=== PATIENT | female | born 1985 | race Caucasian/White ===

== ENCOUNTER 2017-03-24 16:27 | Emergency (ER) | payer OTHER ==
--- NOTE | 2017-03-24 17:16 | DIAGNOSTIC IMAGING REPORT ---
PROCEDURE: XR FINGER - RIGHT INDICATION: TRAUMA/INJURY TECHNIQUE: Three views of the right second digit COMPARISON: None. FINDINGS: There is a fracture of the dorsal aspect of the base of the distal phalanx of the second digit. There is an expansile lesion of the distal phalanx of the second digit which may represent an aneurysmal bone cyst. IMPRESSION: 1. There is a fracture of the dorsal aspect of the base of the distal phalanx of the second digit. 2. 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 Results were called emergency department at 05:15 p.m.
--- NOTE | 2017-03-24 18:06 | ED NURSING NOTES ---
Clinical Report - Nurses [facility] [address] [place] [address] 03/24/2017 16:30 Patient: YEE RODRIGES TRIAGE Triage time 16:36. Acuity: LEVEL 4. Chief Complaint: SKIN LESION and . pt has had a cyst in her 2nd digit of the right hand for 4 years, yesterday, was scrubbing her carseats, and it popped, now is very painful. Alert. --16:42 Stacie Fernandez R.N. 16:36 03/24/17. BP: 118/75. HR: 76. RR: 18. O2 saturation: 99%. Temp: 98.6 F. Pain level now: 08/15. --16:42 Stacie Fernandez R.N. Weight: 68 kg. Height/Length: 68 inches. BMI: 22.8. --16:38 Stacie Fernandez R.N. Medications None. --16:39 Stacie Fernandez R.N. Allergies No Known Drug Allergy. --16:39 Stacie Fernandez R.N. History Arrived by private vehicle. Historian: patient. Primary physician (none). This started yesterday. It is described as painful. SOCIAL HX: Light tobacco smoker (cigarette)- less than 1/2 a pack per day. Alcohol use; consumes beer weekly. History of drug use: marijuana. The patient was not exposed to MRSA. ABUSE ASSESSMENT: Abuse assessment: ('yes") The patient was asked "Do you feel safe in your home?". --16:42 Stacie Fernandez R.N. PROBLEMS: Hypercholesterolemia. --16:41 Stacie Fernandez R.N. ADDITIONAL SURGERIES: Appendectomy. Colon surgery. --16:41 Stacie Fernandez R.N. Interventions ID band on patient. To room. --16:42 Stacie Fernandez R.N. PHYSICAL ASSESSMENT 16:42 03/24/17. GENERAL / NEURO / PSYCH: Alert. Oriented X 4. SKIN: Skin tenderness present. --16:42 Stacie Fernandez R.N. NURSING PROGRESS NOTES 16:42 03/24/17. Patient identifiers checked. Call light placed in reach. Bed placed in lowest position. Patient ready for evaluation- chart flagged. --16:42 Stacie Fernandez R.N. Aluminum-foam finger splint applied to right index finger by tech. Distal pulses intact, sensation intact and motor within normal limits. --18:56 Zita Marr. DISPOSITION / DISCHARGE Departure time: 18:50. Condition at departure: improved. No learning barriers present. Discharge instructions provided and reviewed with the patient. Reviewed splint care instructions (finger in full extension for 4 weeks, reviewed). Reviewed referral to family practice for followup. Verbalized understanding. Written instructions provided. The patient was discharged home and accompanied by daughter. She left the Emergency Department ambulatory and via private vehicle. --18:50 Stacie Fernandez R.N. 18:49 03/24/17. BP: 104/67. HR: 64. RR: 18. O2 saturation: 97%. Temp: 98.1 F. Pain level now: 01/13. --18:50 Stacie Fernandez R.N. Locked/Released at 03/30/2017 10:06 by Rossi Perez R.N.
--- NOTE | 2017-03-24 18:06 | ED NURSING NOTES ---
Clinical Report - Nurses [facility] [address] [place] [address] 03/24/2017 16:30 Patient: YEE RODRIGES TRIAGE Triage time 16:36. Acuity: LEVEL 4. Chief Complaint: SKIN LESION and . pt has had a cyst in her 2nd digit of the right hand for 4 years, yesterday, was scrubbing her carseats, and it popped, now is very painful. Alert. --16:42 Stacie Fernandez R.N. 16:36 03/24/17. BP: 118/75. HR: 76. RR: 18. O2 saturation: 99%. Temp: 98.6 F. Pain level now: 08/15. --16:42 Stacie Fernandez R.N. Weight: 68 kg. Height/Length: 68 inches. BMI: 22.8. --16:38 Stacie Fernandez R.N. Medications None. --16:39 Stacie Fernandez R.N. Allergies No Known Drug Allergy. --16:39 Stacie Fernandez R.N. History Arrived by private vehicle. Historian: patient. Primary physician (none). This started yesterday. It is described as painful. SOCIAL HX: Light tobacco smoker (cigarette)- less than 1/2 a pack per day. Alcohol use; consumes beer weekly. History of drug use: marijuana. The patient was not exposed to MRSA. ABUSE ASSESSMENT: Abuse assessment: ('yes") The patient was asked "Do you feel safe in your home?". --16:42 Stacie Fernandez R.N. PROBLEMS: Hypercholesterolemia. --16:41 Stacie Fernandez R.N. ADDITIONAL SURGERIES: Appendectomy. Colon surgery. --16:41 Stacie Fernandez R.N. Interventions ID band on patient. To room. --16:42 Stacie Fernandez R.N. PHYSICAL ASSESSMENT 16:42 03/24/17. GENERAL / NEURO / PSYCH: Alert. Oriented X 4. SKIN: Skin tenderness present. --16:42 Stacie Fernandez R.N. NURSING PROGRESS NOTES 16:42 03/24/17. Patient identifiers checked. Call light placed in reach. Bed placed in lowest position. Patient ready for evaluation- chart flagged. --16:42 Stacie Fernandez R.N. Aluminum-foam finger splint applied to right index finger by tech. Distal pulses intact, sensation intact and motor within normal limits. --18:56 Zita Marr. DISPOSITION / DISCHARGE Departure time: 18:50. Condition at departure: improved. No learning barriers present. Discharge instructions provided and reviewed with the patient. Reviewed splint care instructions (finger in full extension for 4 weeks, reviewed). Reviewed referral to family practice for followup. Verbalized understanding. Written instructions provided. The patient was discharged home and accompanied by daughter. She left the Emergency Department ambulatory and via private vehicle. --18:50 Stacie Fernandez R.N. 18:49 03/24/17. BP: 104/67. HR: 64. RR: 18. O2 saturation: 97%. Temp: 98.1 F. Pain level now: 01/13. --18:50 Stacie Fernandez R.N. Locked/Released at 03/30/2017 10:06 by Rossi Perez R.N.
--- NOTE | 2017-03-24 18:06 | ED ORDER SUMMARY ---
..... Patient: YEE RODRIGES OrderSheet [facility] VisitID: [id number] [place] [address] 31y, F Registration Date/Time: 03/24/2017 ORDER SHEET Weight: 68.0 kg Allergies: No Known Drug Allergy GENERAL ORDERS: Finger Right (index finger) Urgent (16:51 03/24/2017 Shreya Paulson) (Ack 16:53 Filippo) (18:43 Harvinder R.N.) Splint (Finger) (Right) (Index) (Metal Foam) (jaskaran tape to middle finger. index finger in full extension) (18:05 03/24/2017 Shreya Paulson) (Ack 18:49 Filippo) MEDICATION ORDERS: IV FLUIDS: ORDER SHEET NOTES: [Electronically signed by Rossi Perez R.N. (10:06 03/30/2017)] [Electronically signed by Tim Bains Dr. (22:59 03/31/2017)] [Electronically locked/signed by Rossi Perez R.N. (10:06 03/30/2017)]
--- NOTE | 2017-03-24 18:06 | ED ORDER SUMMARY ---
..... Patient: YEE RODRIGES OrderSheet [facility] VisitID: [id number] [place] [address] 31y, F Registration Date/Time: 03/24/2017 ORDER SHEET Weight: 68.0 kg Allergies: No Known Drug Allergy GENERAL ORDERS: Finger Right (index finger) Urgent (16:51 03/24/2017 Shreya Paulson) (Ack 16:53 Filippo) (18:43 Harvinder R.N.) Splint (Finger) (Right) (Index) (Metal Foam) (jaskaran tape to middle finger. index finger in full extension) (18:05 03/24/2017 Shreya Paulson) (Ack 18:49 Filippo) MEDICATION ORDERS: IV FLUIDS: ORDER SHEET NOTES: [Electronically signed by Rossi Perez R.N. (10:06 03/30/2017)] [Electronically signed by Tim Bains Dr. (22:59 03/31/2017)] [Electronically locked/signed by Rossi Perez R.N. (10:06 03/30/2017)]
--- NOTE | 2017-03-24 18:10 | ED CLINICAL REPORT ---
Clinical Report - Physicians/Mid Levels [facility] [address] [place] [address] 03/24/2017 16:30 Patient: YEE RODRIGES Time Seen: 1642. Arrived- By private vehicle. Historian- patient. HISTORY OF PRESENT ILLNESS Chief Complaint: Injury to the right index finger. The injury happened yesterday. Occurred at home. (jammed finger). Patient is experiencing moderate pain. Patient denies injury to the head or neck. No other injury. REVIEW OF SYSTEMS The patient has had swelling. No tingling, numbness, foreign body or skin laceration. All systems otherwise negative, except as recorded above. PAST HISTORY See nurses notes. " Cyst to the right index finger". Tetanus immunization status is up-to-date. Medications: None. Allergies: No Known Drug Allergy. SOCIAL HISTORY Never smoker. No alcohol use or drug use. Is a local resident. ADDITIONAL NOTES The nursing notes have been reviewed. PHYSICAL EXAM Vital Signs: 03/24/2017 16:36 BP: 118/75. HR: 76. RR: 18. O2 saturation: 99%. Temp: 98.6 F. Pain level now: 10/10. Blood pressure normal. Oxygen saturation normal. Appearance: Alert. Oriented X3. No acute distress. Head: Head atraumatic. Eyes: Pupils equal, round and reactive to light. Eyes normal inspection. CVS: Normal heart rate and rhythm. Heart sounds normal. Pulses normal. Respiratory: No respiratory distress. Breath sounds normal. Chest nontender. Skin: Skin warm and dry. Skin intact. Extremities: (mild amount of ecchymosis and swelling noted to the DIP joint of the right index finger. Neurovascularly intact. Unable to completely extend at the DIP joint. Patient has full flexion. Compartments are soft. Neurovascular intact. no other signs of trauma.). Extremities otherwise negative. Neuro, Vascular and Tendons: Vascular status intact. Sensation intact. Motor intact. Tendon function intact. LABS, X-RAYS, AND EKG Rt UE Digits X-ray: (PROCEDURE: XR FINGER - RIGHT INDICATION: TRAUMA/INJURY TECHNIQUE: Three views of the right second digit COMPARISON: None. FINDINGS: There is a fracture of the dorsal aspect of the base of the distal phalanx of the second digit. There is an expansile lesion of the distal phalanx of the second digit which may represent an aneurysmal bone cyst. IMPRESSION: 1. There is a fracture of the dorsal aspect of the base of the distal phalanx of the second digit. 2. 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 The X-rays were independently viewed by me and interpreted by the radiologist. The X-rays were discussed with the radiologist (recheck today's concerns). PROGRESS AND PROCEDURES Course of Care: the patient is a pleasant 31-year-old female with a past medical history significant for bone cyst presenting for evaluation of pain to the right index finger. Patient with a known deformity to theright finger however with newdiscomfort. Patient will be evaluated for possible fracture. No other signs of trauma noted. no signs of infection. Patient is resting in bed and in no acute distress. Workup shows patient to have a avulsion type fracture noted on the radiographs. Because of the injury, recommended patient be placed in a splint with full extension. Recommended patient also follow-up with her doctor in regards to proper healing of for the wound. discussed with the patient workup here in the emergency Department clinic diagnosis, home care, follow-up, and return precautions. All questions have been answered. The patient expressed understanding of these instructions and was agreeable to them. Disposition: Discharged. Condition: good. CLINICAL IMPRESSION 03/24/2017 16:36 BP: 118/75. HR: 76. RR: 18. O2 saturation: 99%. Temp: 98.6 F. Pain level now: 10/10. Blood pressure normal. Oxygen saturation normal. Distal phalanx fracture of the right index finger (acute). INSTRUCTIONS Warnings: GENERAL WARNINGS: Return or contact your physician immediately if your condition worsens or changes unexpectedly, if not improving as expected, or if other problems arise. Specifically return if pain, vomiting, bleeding, breathing difficulty or fever. Your Current Medications: CONTINUE TAKING THE FOLLOWING MEDICATIONS: None*. Prescription Medications: Goldsmith 5 mg / 325 mg tablets: take 1 orally every 6 hours as needed for pain. Dispense twenty (20). No refill. Substitution is permissible. Follow-up: Return to the emergency department as needed. Follow up with doctor in three weeks. Reason for referral: recheck today's concerns. Summary of care provided to patient via paper. Screening today revealed the patient's blood pressure to be in the normal range. The patient should follow up with a primary care provider for blood pressure management. Understanding of the discharge instructions verbalized by patient. (Electronically signed by Tim Bains Dr. 03/31/2017 22:59)
--- NOTE | 2017-03-31 22:59 | ED MED RECONCILIATION SUMMARY ---
Patient: YEE RODRIGES Medication Reconciliation Report [facility] VisitID: [id number] [address] [place] [address] 31y, F Registration Date/Time: 03/24/2017 Weight: 68.0 kg Height/Length: 68 in. BMI: 22.8 ALLERGIES: No Known Drug Allergy The patient's Home Medications are listed below: NONE. The source(s) of the original Home Medication information: Not obtained. The following Medications were given to the patient in the Emergency Department: None. The following Medications were prescribed to the patient: Helton 5 mg / 325 mg tablets: take 1 orally every 6 hours as needed for pain. Dispense twenty (20). No refill. Substitution is permissible. -- Tim Bains Dr.
--- NOTE | 2017-03-31 22:59 | ED DISCHARGE INSTRUCTIONS ---
Patient: YEE RODRIGES General Instructions [facility] VisitID: [id number] [place] [address] 31y, F Registration Date/Time: 03/24/2017 03/24/2017 16:36 BP: 118/75. HR: 76. RR: 18. O2 saturation: 99%. Temp: 98.6 F. Pain level now: 10. Blood pressure normal. Oxygen saturation normal. Distal phalanx fracture of the right index finger (acute). INSTRUCTIONS Warnings: GENERAL WARNINGS: Return or contact your physician immediately if your condition worsens or changes unexpectedly, if not improving as expected, or if other problems arise. Specifically return if pain, vomiting, bleeding, breathing difficulty or fever. Your Current Medications: CONTINUE TAKING THE FOLLOWING MEDICATIONS: None*. Prescription Medications: Vaughn 5 mg / 325 mg tablets: take 1 orally every 6 hours as needed for pain. Dispense twenty (20). No refill. Substitution is permissible. Follow-up: Return to the emergency department as needed. Follow up with doctor in three weeks. Reason for referral: recheck today's concerns. Summary of care provided to patient via paper. Screening today revealed the patient's blood pressure to be in the normal range. The patient should follow up with a primary care provider for blood pressure management. Understanding of the discharge instructions verbalized by patient. ADDITIONAL INFORMATION Mallet Finger You have an injury to your finger causing the tip of your finger to droop down. This has the appearance of a small hammer or "mallet" and therefore is given this name. This is due to a rupture of the tendon that holds the finger straight at the last joint. Sometimes a small fracture occurs where this tendon attaches to the bone. This causes local pain, swelling and bruising. This injury takes about 4-6 weeks to heal. This injury is often treated with a special finger splint ("Stack" splint) to hold the tendon in the correct position. But even with proper treatment, it may not be possible to fully straighten that joint after the injury heals. After healing the joint will be stiff, but usually recovers flexibility over time. Home Care: 1) Keep your arm elevated to reduce pain and swelling. When sitting or lying down elevate your arm above the level of your heart. You can do this by placing your arm on a pillow that rests on your chest or on a pillow at your side. This is most important during the first 48 hours after injury. 2) Apply an ice pack (ice cubes in a plastic bag, wrapped in a towel) over the injured area for 20 minutes every 1-2 hours the first day. Continue with ice packs 3-4 times a day for the next two days, then as needed for the relief of pain and swelling. 3) If a splint was applied, keep it in place for the time advised. If you remove it too soon, it will cause the position of the tendon to change and the finger joint will heal in a bent position. 4) You may use acetaminophen (Tylenol) or ibuprofen (Motrin, Advil) to control pain, unless another pain medicine was prescribed. [ NOTE : If you have chronic liver or kidney disease or ever had a stomach ulcer or GI bleeding, talk with your doctor before using these medicines.] 5) Most patients can return to normal activity while wearing the splint. Discuss any limitations with your doctor. Follow Up with you doctor in one week, or as advised by our staff, to be sure the bone or tendon is healing properly. [NOTE: A radiologist will review any X-rays that were taken. We will notify you of any new findings that may affect your care.] Get Prompt Medical Attention if any of the following occur: -- Pain or swelling increase -- Redness, warmth or fluid draining from finger -- Finger becomes more cold, blue, numb or tingly Hydrocodone Bitartrate, Acetaminophen Oral tablet What is this medicine? ACETAMINOPHEN; HYDROCODONE (a set a GUADALUPE alexi fen; benito droe KOE done) is a pain reliever. It is used to treat mild to moderate pain. How should I use this medicine? Take this medicine by mouth. Swallow it with a full glass of water. Follow the directions on the prescription label. If the medicine upsets your stomach, take the medicine with food or milk. Do not take more than you are told to take. Talk to your supervisor inspection and testing regarding the use of this medicine in children. This medicine is not approved for use in children. What side effects may I notice from receiving this medicine? Side effects that you should report to your doctor or health inspector health care facilities as soon as possible: allergic reactions like skin rash, itching or hives, swelling of the face, lips, or tongue breathing problems confusion feeling faint or lightheaded, falls stomach pain yellowing of the eyes or skin Side effects that usually do not require medical attention (report to your doctor or health inspector health care facilities if they continue or are bothersome): nausea, vomiting stomach upset What may interact with this medicine? alcohol antihistamines isoniazid medicines for depression, anxiety, or psychotic disturbances medicines for sleep muscle relaxants naltrexone narcotic medicines (opiates) for pain phenobarbital ritonavir tramadol What if I miss a dose? If you miss a dose, take it as soon as you can. If it is almost time for your next dose, take only that dose. Do not take double or extra doses. Where should I keep my medicine? Keep out of the reach of children. This medicine can be abused. Keep your medicine in a safe place to protect it from theft. Do not share this medicine with anyone. Selling or giving away this medicine is dangerous and against the law. Store at room temperature between 15 and 30 degrees C (59 and 86 degrees F). Protect from light. Keep container tightly closed. Throw away any unused medicine after the expiration date. Discard unused medicine and used packaging carefully. Pets and children can be harmed if they find used or lost packages. What should I tell my health care provider before I take this medicine? They need to know if you have any of these conditions: brain tumor Crohn's disease, inflammatory bowel disease, or ulcerative colitis drink more than 3 alcohol-containing drinks per day drug abuse or addiction head injury heart or circulation problems kidney disease or problems going to the bathroom liver disease lung disease, asthma, or breathing problems an unusual or allergic reaction to acetaminophen, hydrocodone, other opioid analgesics, other medicines, foods, dyes, or preservatives or trying to get breast-feeding What should I watch for while using this medicine? Tell your doctor or health inspector health care facilities if your pain does not go away, if it gets worse, or if you have new or a different type of pain. You may develop tolerance to the medicine. Tolerance means that you will need a higher dose of the medicine for pain relief. Tolerance is normal and is expected if you take the medicine for a long time. Do not suddenly stop taking your medicine because you may develop a severe reaction. Your body becomes used to the medicine. This does NOT mean you are addicted. Addiction is a behavior related to getting and using a drug for a non-medical reason. If you have pain, you have a medical reason to take pain medicine. Your doctor will tell you how much medicine to take. If your doctor wants you to stop the medicine, the dose will be slowly lowered over time to avoid any side effects. You may get drowsy or dizzy when you first start taking the medicine or change doses. Do not drive, use machinery, or do anything that may be dangerous until you know how the medicine affects you. Stand or sit up slowly. There are different types of narcotic medicines (opiates) for pain. If you take more than one type at the same time, you may have more side effects. Give your health care provider a list of all medicines you use. Your doctor will tell you how much medicine to take. Do not take more medicine than directed. Call emergency for help if you have problems breathing. The medicine will cause constipation. Try to have a bowel movement at least every 2 to 3 days. If you do not have a bowel movement for 3 days, call your doctor or health inspector health care facilities. Too much acetaminophen can be very dangerous. Do not take Tylenol (acetaminophen) or medicines that contain acetaminophen with this medicine. Many non-prescription medicines contain acetaminophen. Always read the labels carefully. You have been given the following additional information: Mallet Finger Hydrocodone Bitartrate, Acetaminophen Oral tablet (Electronically signed by Tim Bains Dr. 03/31/2017 22:59)
--- NOTE | 2017-03-31 22:59 | ED MAR SUMMARY ---
..... Medication Administration Record [facility] [address] [place], [place] [id number] Patient: YEE RODRIGES Visit ID: [id number] 31y, F Weight: 68.0 kg Height/Length: 68 in BMI: 22.8 ALLERGIES: No Known Drug Allergy
--- NOTE | 2017-03-31 22:59 | ED MED RECONCILIATION SUMMARY ---
Patient: YEE RODRIGES Medication Reconciliation Report [facility] VisitID: [id number] [address] [place] [address] 31y, F Registration Date/Time: 03/24/2017 Weight: 68.0 kg Height/Length: 68 in. BMI: 22.8 ALLERGIES: No Known Drug Allergy The patient's Home Medications are listed below: NONE. The source(s) of the original Home Medication information: Not obtained. The following Medications were given to the patient in the Emergency Department: None. The following Medications were prescribed to the patient: Guilford 5 mg / 325 mg tablets: take 1 orally every 6 hours as needed for pain. Dispense twenty (20). No refill. Substitution is permissible. -- Tim Bains Dr.
--- NOTE | 2017-03-31 22:59 | ED MAR SUMMARY ---
..... Medication Administration Record [facility] [address] [place], [place] [id number] Patient: YEE RODRIGES Visit ID: [id number] 31y, F Weight: 68.0 kg Height/Length: 68 in BMI: 22.8 ALLERGIES: No Known Drug Allergy
== END 2017-03-24 18:50 | disposition home or self-care (01) ==
LOC: ED SRH 16:27
DX: S62.630A Displaced fracture of distal phalanx of right index finger, initial encounter for closed fracture (principal); W23.1XXA Caught, crushed, jammed, or pinched between stationary objects, initial encounter; Y93.9 Activity, unspecified; Y92.009 Unspecified place in unspecified non-institutional (private) residence as the place of occurrence of the external cause; Y99.9 Unspecified external cause status; F17.210 Nicotine dependence, cigarettes, uncomplicated